=== PATIENT | male | born 1950 | race Caucasian/White ===

== ENCOUNTER 2017-01-15 00:37 | Emergency (ER) | payer BC, OTHER ==
[2017-01-15 00:57] VITALS: BP 142/78; PULSE 79; TEMP 97.4; BMI 30.7
[2017-01-15] MEDS ORDERED: morphine CARPU-JECT 2 MG/1 ML DISP.SYRIN IVPUSH ONE (01:20)
--- NOTE | 2017-01-15 01:23 | PDOC ---
History of Present Illness <Juan Silverman - Last Filed: 01/15/17 03:17> - General History Source: Family - History of Present Illness Initial Comments: 01/15/17 03:21 Patient is 66M with pmh of HTN and DM2 who presents to the ED with his family complaining of back pain following a fall from the stairs onto a door head first. No signes of excoriation, laceration or hematoma. Fall was witness, LOC for 45 seconds <Getachew Victor - Last Filed: 01/15/17 04:15> - General Chief Complaint: Injury Stated Complaint: FALL Time Seen by Provider: 01/15/17 01:14 Past History <Juan Silverman - Last Filed: 01/15/17 03:17> - Psycho/Social/Smoking Cessation Hx Suicidal Ideation: No Smoking History: Unknown if ever smoked Information on smoking cessation initiated: No Hx Alcohol Use: No Drug/Substance Use Hx: No <Getachew Victor - Last Filed: 01/15/17 04:15> - Past Medical History Allergies/Adverse Reactions: Allergies Allergy/AdvReac Type Severity Reaction Status Date / Time No Known Allergies Allergy Verified 01/15/17 00:55 Home Medications: Ambulatory Orders Atorvastatin Calcium 20 mg PO DAILY 01/15/17 Glimepiride [Amaryl -] 4 mg PO DAILY 01/15/17 Ibuprofen 800 mg PO TID #30 tablet 01/15/17 Metformin HCl [Glucophage] 1,000 mg PO DAILY 01/15/17 Methocarbamol [Robaxin -] 500 mg PO TID #30 tablet 01/15/17 Oxycodone HCl/Acetaminophen [Percocet 5-325 mg Tablet] 1 - 2 tab PO Q6H #20 tablet MDD 4 01/15/17 Ramipril 10 mg PO DAILY 01/15/17 Review of Systems - Review of Systems Able to Perform ROS?: No Constitutional: No: Symptoms Reported Respiratory: No: Symptoms reported, Cough, Orthopnea Cardiac (ROS): No: Symptoms Reported ABD/GI: No: Symptoms Reported : No: Symptoms Reported Musculoskeletal: Yes: Back Pain Integumentary: No: Symptoms Reported Neurological: No: Symptoms reported <Getachew Victor - Last Filed: 01/15/17 04:15> *Physical Exam - Vital Signs Last Vital Signs Temp Pulse Resp BP Pulse Ox 97.4 F L 79 14 142/78 98 01/15/17 00:55 01/15/17 00:55 01/15/17 00:55 01/15/17 00:55 01/15/17 00:55 <Juan Silverman - Last Filed: 01/15/17 03:17> - Vital Signs Last Vital Signs Temp Pulse Resp BP Pulse Ox 97.4 F L 79 14 142/78 98 01/15/17 00:55 01/15/17 00:55 01/15/17 00:55 01/15/17 00:55 01/15/17 00:55 - Physical Exam General Appearance: Yes: Nourished, Appropriately Dressed, Apparent Distress HEENT: positive: EOMI, AMBIKA Neck: negative: Tender Respiratory/Chest: positive: Lungs Clear, Normal Breath Sounds. negative: Chest Tender, Respiratory Distress Cardiovascular: positive: Regular Rhythm, Regular Rate, S1, S2 Gastrointestinal/Abdominal: positive: Normal Bowel Sounds, Flat, Soft. negative : Tender Musculoskeletal: positive: Normal Inspection, Muscle Spasm, Vertebral Tenderness (around T5-T6) Extremity: positive: Normal Capillary Refill <Getachew Victor - Last Filed: 01/15/17 04:15> ED Treatment Course - LABORATORY CBC & Chemistry Diagram: 01/15/17 01:22 01/15/17 01:22 - ADDITIONAL ORDERS Additional order review: Laboratory Results 01/15/17 01:22 Sodium 134 L Potassium 4.0 Chloride 98 Carbon Dioxide 21 Anion Gap 15 BUN 19 H Creatinine 1.2 Creat Clearance w eGFR > 60 Random Glucose 372 H* Calcium 8.9 Total Bilirubin 0.3 AST 148 H ALT 109 H Alkaline Phosphatase 90 Total Protein 6.6 Albumin 3.6 01/15/17 01:22 RBC 3.87 L MCV 94.4 MCHC 33.8 RDW 12.9 MPV 8.5 Neutrophils % 73.7 Lymphocytes % 17.7 Monocytes % 6.9 Eosinophils % 0.9 Basophils % 0.8 - Medications Given in the ED: ED Medications Discontinued Medications Generic Name Dose Route Start Last Admin Trade Name Freq PRN Reason Stop Dose Admin Ketorolac Tromethamine 30 mg 01/15/17 02:48 01/15/17 02:58 Toradol Injection - IVPUSH 01/15/17 02:49 30 mg ONCE ONE Administration Morphine Sulfate 2 mg 01/15/17 01:20 01/15/17 02:04 Morphine Injection - IVPUSH 01/15/17 01:21 2 mg ONCE ONE Administration <Juan Silverman - Last Filed: 01/15/17 03:17> - LABORATORY CBC & Chemistry Diagram: 01/15/17 01:22 01/15/17 01:22 <Getachew Victor - Last Filed: 01/15/17 04:15> Medical Decision Making - Medical Decision Making 01/15/17 03:25 66M with pmh of DM2 and HTN presents with back pain and head contusion s/p mechanical fall from 5th stair[address] CT Head, cervical spine, thoracic spine and lumbar spine negative for fracture. Chemistry shows glucose 372, AST:148 ALT:109 Patient d/c with f/u outpatient for dm control 01/15/17 04:01 01/15/17 04:12 <Getachew Victor - Last Filed: 01/15/17 04:15> *DC/Admit/Observation/Transfer <Juan Silverman - Last Filed: 01/15/17 03:17> <Getachew Victor - Last Filed: 01/15/17 04:15> Diagnosis at time of Disposition: Fall, Back contusion - Discharge Dispostion Disposition: HOME Condition at time of disposition: Stable - Prescriptions Prescriptions: Ibuprofen 800 mg PO TID #30 tablet Oxycodone HCl/Acetaminophen [Percocet 5-325 mg Tablet] 1 - 2 tab PO Q6H #20 tablet MDD 4 Methocarbamol [Robaxin -] 500 mg PO TID #30 tablet - Patient Instructions Printed Discharge Instructions: How to Prevent Falls - Post Discharge Activity Work/School Note: Back to Work
[2017-01-15] MEDS ORDERED: morphine CARPU-JECT 4 MG/1 ML DISP.SYRIN ONE (01:40)
[2017-01-15 02:22] LABS: BASOPHIL 0.8 % (0-2.0); EOSINOPHIL 0.9 % (0-4.5); MCH 31.9 pg (25.7-33.7); MCHC 33.8 g/dl (32.0-35.9); MEAN CELL VOLUME 94.4 fl (80-96); MEAN PLT VOLUME 8.5 fl (7.5-11.1); NEUTROPHILS 73.7 % (42.8-82.8); PLATELET COUNT 294 K/MM3 (134-434); RDW 12.9 % (11.9-15.9); WHITE BLOOD COUNT 9.7 K/mm3 (4.0-10.0)
[2017-01-15] MEDS ORDERED: KETOROLAC TROMETHAMINE 30 MG/1 ML VIAL IVPUSH ONE (02:48)
[2017-01-15 02:49] LABS: ALBUMIN 3.6 g/dl (3.4-5.0); ANION GAP 15 (8-16); CALCIUM 8.9 mg/dL (8.5-10.1); CO2 21 mmol/L (21-32); CREATININE 1.2 mg/dL (0.7-1.3); SGOT/AST 148 U/L (15-37); SGPT/ALT 109 U/L (12-78)
[2017-01-15 02:51] LABS: ALK PHOS 90 U/L (45-117); BILIRUBIN,TOTAL 0.3 mg/dL (0.2-1.0); TOT PROT 6.6 g/dl (6.4-8.2)
[2017-01-15 02:52] LABS: GLUCOSE,RANDOM 372 mg/dL (74-106)
[2017-01-15] MEDS ORDERED: KETOROLAC TROMETHAMINE 30 MG/1 ML VIAL ONE (02:53)
--- NOTE | 2017-01-15 03:22 | PDOC ---
Attending Attestation - Resident Resident Name: Getachew Victor - ED Attending Attestation I have performed the following: I have examined & evaluated the patient, The case was reviewed & discussed with the resident, I agree w/resident's findings & plan, Exceptions are as noted - Physicial Exam PE: 01/15/17 03:27 *Physical Exam General Appearance: Yes: Appropriately Dressed. No: Apparent Distress, Intoxicated HEENT: positive: EOMI, AMBIKA, Normal ENT Inspection, Normal Voice, TMs Normal, Pharynx Normal. negative: Pale Conjunctivae, Photophobia, Scleral Icterus (R), Scleral Icterus (L) Neck: positive: Trachea midline, Normal Thyroid, Supple. negative: Tender, Rigid, Carotid bruit, Stridor, Lymphadenopathy (R), Lymphadenopathy (L), Thyromegaly Respiratory/Chest: positive: Lungs Clear, Normal Breath Sounds. negative: Chest Tender, Respiratory Distress, Accessory Muscle Use, Labored Respiration, RES, Crackles, Rales, Rhonchi, Stridor, Wheezing, Dullness Cardiovascular: positive: Regular Rhythm, Regular Rate, S1, S2. negative: Edema , JVD, Murmur, Bradycardia, Tachycardia Vascular Pulses: Dorsalis-Pedis (R): 2+, Doralis-Pedis (L): 2+ Gastrointestinal/Abdominal: positive: Normal Bowel Sounds, Flat, Soft. negative : Tender, Organomegaly, Pulsatile Mass, Increased Bowel Sounds, Decreased BS, Distended, Guarding, Rebound, Hernia, Hepatomegaly, Spleenomegaly Lymphatic: negative: Adenopathy, Tenderness Musculoskeletal: positive: Normal Inspection. tenderness to mid thoracic region. no bony crepitus negative: CVA Tenderness, Decreased Range of Motion Extremity: positive: Normal Capillary Refill, Normal Inspection, Normal Range of Motion, Pelvis Stable. negative: Tender, Pedal Edema, Swelling, Erythema Integumentary: positive: Normal Color, Dry, Warm. negative: Cyanotic, Erythema , Jaundice, Rash Neurologic: positive: it telecom technician II-XII NML intact, Fully Oriented, Alert, Normal Mood/ Affect, Motor Strength 5/5. negative: EOM Palsy, Facial Droop, Sensory Deficit <Juan Silverman - Last Filed: 01/15/17 03:23> - HPI HPI: The patient is a 66 yo M with a past medical history significant for DM, HTN who presents s/p witnessed mechanical fall earlier today. As per the patients family, the patient reports walking down the stairs and missed a step 5 stairs up. The patient fell head first onto the R side of his face which hit the door. According to the patients family, the patient lost consciousness for approximately 45 seconds. The patient is confused but complaining of pain in his back. - Medical Decision Making Documentation prepared by Sherita Thompson, acting as medical chemist for Juan Silverman MD/DO. <Sherita Thompson - Last Filed: 01/15/17 04:24> Discharge Disposition - Discharge Dispostion Admit: No <Juan Silverman - Last Filed: 01/15/17 03:23> <Sherita Thompson - Last Filed: 01/15/17 04:24> - Diagnosis Fall, Back contusion - Discharge Dispostion Disposition: HOME Condition at time of disposition: Stable - Prescriptions Prescriptions: Ibuprofen 800 mg PO TID #30 tablet Oxycodone HCl/Acetaminophen [Percocet 5-325 mg Tablet] 1 - 2 tab PO Q6H #20 tablet MDD 4 Methocarbamol [Robaxin -] 500 mg PO TID #30 tablet - Patient Instructions Printed Discharge Instructions: How to Prevent Falls - Post Discharge Activity Work/School Note: Back to Work
--- NOTE | 2017-01-15 21:19 | PDOC ---
Patient Follow-up (Call Back) - Post ED Follow - Up Condition at time of discharge: Stable Disposition at time of original discharge: HOME - Disposition Additional Instructions/Notes: The patient is a 66-year-old male who was evaluated overnight by Dr. Gillespie and discharged prior to beginning of my shift. I received a call in the morning from the radiologist that the CAT scan of the patient's lumbosacral spine was reread and that there was a lesion in his left upper kidney that would need a dedicated ultrasound for further evaluation. I had my scribe Jaylin place multiple calls to the patient's home number that was listed in the EMR and got a busy signal every time. I asked our [employer]PER[employer] Nirav Bowie to send a patient notice to their listed home address in the EMR ([address] [place] [address], [address], [place] [id number]) with instructions to call the ED so that we can inform him of the re-read of his CT and need to get a dedicated renal US to further evaluate the lesion on his kidney.
== END 2017-01-15 04:31 | disposition home or self-care (01) ==
LOC: JER 00:37
PROC: 3E033GC Introduction of Other Therapeutic Substance into Peripheral Vein, Percutaneous Approach (ICD-10-PCS; principal; 2017-01-15)
PROC: 3E0333Z Introduction of Anti-inflammatory into Peripheral Vein, Percutaneous Approach (ICD-10-PCS; 2017-01-15)
DX: S20.229A Contusion of unspecified back wall of thorax, initial encounter (principal); W10.9XXA Fall (on) (from) unspecified stairs and steps, initial encounter; Y93.89 Activity, other specified; Y92.9 Unspecified place or not applicable; I10 Essential (primary) hypertension; E11.9 Type 2 diabetes mellitus without complications
CPT/HCPCS: 70450-TC; 72125-TC; 72128-TC; 72131-TC; 80053; 85025; 99281-25